=== PATIENT | female | born 1965 | race Caucasian/White ===

== ENCOUNTER 2021-03-06 03:14 | Emergency (ER) | payer SELFPAY ==
[~2021-03-06] VITALS: Ht 154.9 cm; Wt 48.1 kg
[2021-03-06] MEDS ORDERED: KETOROLAC TROMETHAMINE 30 MG/ML VIAL IV STA (03:16)
[2021-03-06] MEDS ORDERED: CEFTRIAXONE 1 GM in SODIUM CHLORIDE 0.9% 50ML 50 ML IV STA (03:21)
[2021-03-06] MEDS ORDERED: SODIUM CHLORIDE 0.9% 1000ML 1,000 ML IV SCH (03:30)
[2021-03-06 03:38] LABS: BASOPHILS % 0.3 % (0.0-1.0); EOSINOPHILS # (AUTO) 0.1 (0.0-0.4); EOSINOPHILS % 0.8 % (0.0-6.0); HEMATOCRIT 39.9 % (34.2-44.1); HEMOGLOBIN 13.2 g/dL (12.0-16.0); LYMPHOCYTES % 12.9 % (18.0-39.1); MEAN CORPUSCULAR HEMOGLOBIN 31.4 pg (28-32); MEAN CORPUSCULAR HGB CONC 33.1 g/dL (31-35); MONOCYTES # (AUTO) 1.9 (0.2-0.8); MONOCYTES % 12.1 % (4.4-11.3); NEUTROPHILS # (AUTO) 11.7 (2.1-6.9); NEUTROPHILS % 73.5 % (38.7-80.0); PLATELET COUNT 245 x10e3/uL (140-360); RED CELL DISTRIBUTION WIDTH 12.4 % (11.7-14.4)
[2021-03-06] MEDS ORDERED: ONDANSETRON HCL INJ 2MG/ML 2ML 2 MG/ML VIAL IV STA (03:39)
[2021-03-06 03:45] LABS: CLARITY,URINE SL CLOUDY (CLEAR); COLOR,URINE YELLOW (YELLOW); KETONES,URINE NEGATIVE (NEGATIVE); LEUKOCYTE ESTERASE ,URINE SMALL (NEGATIVE); NITRITE,URINE NEGATIVE (NEGATIVE); PROTEIN,URINE DIPSTICK 1+ (NEGATIVE); URINE UROBILINOGEN 0.2 mg/dL (0.2 - 1)
[2021-03-06 03:55] LABS: BACTERIA,URINE MODERATE /HPF; EPITHELIAL CELLS,URINE FEW /LPF; WBC,URINE (MAN) 21-50 /HPF (0-5)
[2021-03-06 03:57] LABS: ALBUMIN 3.3 g/dL (3.5-5.0); ALBUMIN/GLOBULIN RATIO 0.9 (0.8-2.0); ANION GAP 12.7 mmol/L (8-16); CALCIUM 8.7 mg/dL (8.4-10.2); CREATININE, SERUM 0.88 mg/dL (0.57-1.11); POTASSIUM 3.7 mmol/L (3.5-5.1)
[2021-03-06] MEDS ORDERED: CEFDINIR300 MG PO (04:36)
[2021-03-06] MEDS ORDERED: ONDANSETRON ODT4 MG PO (04:49)
[2021-03-06 07:03] VITALS: BP 133/76
== END 2021-03-06 07:05 | disposition home or self-care (01) ==
LOC: ER 03:40
DX: R50.9 Fever, unspecified (principal); M54.5 Low back pain; N12 Tubulo-interstitial nephritis, not specified as acute or chronic; I10 Essential (primary) hypertension; J44.9 Chronic obstructive pulmonary disease, unspecified; J45.909 Unspecified asthma, uncomplicated; F41.9 Anxiety disorder, unspecified; Z20.822 Contact with and (suspected) exposure to COVID-19
CPT/HCPCS: 36415; 74176; 80053; 81001; 83605; 85025; 87040; 87086; 87186; 99284; J0696; J1885; J2405; J7030; U0002

== ENCOUNTER → 2025-01-28 | Outpatient (REF) | payer MEDICARE ==
[~2025-01-28] MED LIST: CEFDINIR300 MG PO; ONDANSETRON ODT4 MG PO
== END ==
LOC: RAD 12:16
PROVIDERS: ATTEND Ophthalmology
DX: H30.23 Posterior cyclitis, bilateral (principal)
CPT/HCPCS: 71046